=== PATIENT | female | born 1950 | race Caucasian/White ===

== ENCOUNTER 2019-08-15 07:20 | Outpatient (CLI) | payer MEDICARE, OTHER, SELFPAY ==
--- NOTE | ~2019-08-15 | MM_ITS ---
EXAMINATION: MM screening [facility] BI w herminia HISTORY: Screening mammogram TECHNIQUE: Craniocaudal and mediolateral oblique 3-D tomosynthesis images were obtained and synthetic 2-D images were generated. CAD analysis was submitted and interpreted. COMPARISON: Comparison to multiple prior studies sequentially, with oldest reviewed study dated 06/26. BREAST PARENCHYMAL COMPOSITION: There are scattered areas of fibroglandular density. FINDINGS: There is no evidence of suspicious mass, calcification, or architectural distortion to sugg est malignancy in either breast. There has been no suspicious interval change. IMPRESSION: 1. No mammographic evidence of malignancy. 2. Recommend routine screening mammography in one year. BI-RADS Category 1: Negative Reviewed, dictated and finalized at location A.
== END 2019-08-15 07:21 | disposition home or self-care (01) ==
PROVIDERS: PCP Family Medicine; Visit Provider Family Medicine
DX: Z12.31 Encounter for screening mammogram for malignant neoplasm of breast (principal)
CPT/HCPCS: 77063; 77067

== ENCOUNTER 2020-02-26 14:53 | Outpatient (CLI) | payer MEDICARE, OTHER, SELFPAY ==
--- NOTE | ~2020-02-26 | DEXA_ITS ---
Bone Density Report Name: Naty Cruz Age: 69 Sex: Female Ethnicity: White Date of : 1950 Indication: postmenopausal; hysterectomy; Referring Provider: KAE BRADEN Study: Bone densitometry was performed. Exam Date: February 26, 2020 Accession number: [id number] Bone Density: Region BMD T-score Z-score Classification AP Spine (L1-L4) 1.161 1.0 3.1 Normal Femoral Neck (Left) 0.806 -0.4 1.3 Normal Total Hip (Left) 0.981 0.3 1.8 Normal Total Hip Bilateral Avg 0.987 0.4 1.8 Normal Femoral Neck (Right) 0.824 -0.2 1.5 Normal Total Hip (Right) 0.992 0.4 1.8 Normal World Health Organization criteria for BMD impression classify patients as: Normal (T-score at or above -1.0), Osteopenia (T-score between -1.0 and -2.5), or Osteoporosis (T-score at or below -2.5). 10-year Fracture Risk: FRAX not reported because: All T-scores for Spine Total, Hip Total, Femoral Neck at or above -1.0 Previous Exams: Region Exam Age BMD T-score BMD Change BMD Change Date g/cm2 vs Baseline vs Previous AP Spine(L1-L4) 02/26/2020 69 1.161 1.0 -0.010(-0.9%)# 0.016(1.4%)# 07/06/2016 66 1.145 0.9 -0.027(-2.3%)# 0.028(2.5%)# 05/29/2013 63 1.117 0.6 -0.055(-4.7%)# -0.021(-1.8%) 05/25/2011 61 1.137 0.8 -0.034(-2.9%)# -0.067(-5.6%)# 04/06/2007 56 1.204 1.4 0.033(2.8%)* 0.033(2.8%)* 12/26/2003 53 1.172 1.1 Total Hip(Left) 02/26/2020 69 0.981 0.3 -0.133(-11.9%) -0.003(-0.3%)# 07/06/2016 66 0.984 0.3 -0.130(-11.6%) -0.056(-5.4%)# 05/29/2013 63 1.040 0.8 -0.074(-6.6%)# -0.030(-2.8%)* 05/25/2011 61 1.070 1.0 -0.044(-3.9%)# -0.057(-5.0%)# 04/06/2007 56 1.126 1.5 0.013(1.1%) 0.013(1.1%) 12/26/2003 53 1.114 1.4 Total Hip(Right) 02/26/2020 69 0.992 0.4 -0.111(-10.0%) 0.053(5.6%)# 07/06/2016 66 0.940 0.0 -0.163(-14.8%) -0.125(-11.8%) 05/29/2013 63 1.065 1.0 -0.038(-3.5%)# 0.005(0.4%) 05/25/2011 61 1.060 1.0 -0.043(-3.9%)# -0.047(-4.3%)# 04/06/2007 56 1.108 1.4 0.005(0.4%) 0.005(0.4%) 12/26/2003 53 1.103 1.3 *Denotes significance at 95% confidence level, LSC for AP Spine = 0.022 g/cm2, LSC for Total Hip = 0.027 g/cm2 Clinical Information Provided by Patient: Has used the following medications: HRT (i.e. estrogen/hormone therapy), Vitamin D, Calcium Has the following medical conditions: Hysterectomy Patient maximum height was 64 Drinks caffeinated beverages Onset of menses at age 11
== END 2020-02-26 14:54 | disposition home or self-care (01) ==
LOC: ANHIMG 14:55
PROVIDERS: PCP Family Medicine; Visit Provider Family Medicine
DX: Z78.0 Asymptomatic menopausal state (principal)
CPT/HCPCS: 77080

== ENCOUNTER 2020-03-22 09:00 | Outpatient (RCR) | payer MEDICARE, OTHER, SELFPAY ==
[2019-12-25 13:56] VITALS: BP_SYST 80
--- NOTE | 2019-12-25 15:51 | PTOPEVAL ---
INITIAL PHYSICAL THERAPY EVALUATION and PLAN OF CARE Thank you for referring Naty Cruz to [facility].? Naty is scheduled to be seen for physical therapy? 1-2x/week for 16 weeks. Please review, sign, date and return this plan of care BILLY. I agree with and certify that the following plan of care is medically necessary. Referring Physician Date Admitting Provider: Attending Provider: Charly MarieJr. MD Referring Provider: *PT Outpatient Evaluation Start: 12/25/19 13:55 Freq: Status: Active Protocol: Document 12/25/19 13:56 MISTY (Rec: 12/25/19 15:50 MISTY [id number]) Therapy Assessment Status Assessment Status Assessment Status Evaluation Outpatient Past Medical History Past Medical History Source of Past Medical History Patient Neurological History Hx Neurological Disorders No Significant History Cardiovascular History Hx Cardiac Disorders No Significant History Respiratory History Hx Respiratory Disorders No Significant History Gastrointestinal History Hx Gastrointestinal Disorders No Significant History Genitourinary History Hx Genitourinary Disorders No Significant History Musculoskeletal History Hx Orthopedic Surgery Yes: R RTC surgery Endocrine History Hx Endocrine Disorders No Significant History HEENT History Hx Cataracts Yes: 2019 Evaluation Information Problem Diagnosis R RTR, subacromial decompression, distal clavicle excision,biceps tenodesis Onset 12/18/2019 Subjective Information Naty reports that she had Query Text:As Reported By Patient/ 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 Switched MD 's - had MRI - + for rotator cuff tear. Sleeping is uncomfortable - will be awaken during the night. Mornings good - does okay during the day. Wearing sling all of the time except for bathing. Diagnostic Tests MRI For This Problem Yes Prior Level of Function Activity Level (Last 3 Months) Hand Dominance Right Medications Home Meds (Include: OTC, RX, Vitamins, pain meds, hormone replacement Herbals, Dose, Route,and Frequency) cream, magnesium, fish oil, Query Text:Home Med Entries Will No multivitamin Mon, Wed, Fri, Longer Recall From Past Visits. Home vitamin D, E Meds Must Be Re-entered With Each Visit. Home Setting Home Type House,Multiple Levels Environmental Barriers Stairs, Greater than 4 Living Situation With Spouse Jonathan
--- NOTE | 2020-01-15 12:39 | PCPTNOTE ---
Patient called & cancelled scheduled appointment this date due to being put in quarantine for 2 weeks-possible COVID exposure. Patient will be emailed a copy of phase 2 cane exercises and PT called patient with specific instructions for home exercises. Patient to call if having any issues with exercises. Plan to call patient weekly until able to return-to monitor home program. Cheri Young PT
--- NOTE | 2020-01-26 14:44 | PCPTNOTE ---
Patient is due for the renewal of physical therapy orders this date. Plan of care, goals, and progress have been reviewed. The patient remains appropriate for continued physical therapy services 2 times a week for 6 more weeks to advance per MD protocol . Continue physical therapy per plan of care. Please sign and date for approval to continue physical therapy. Thank you for your referral. Cheri Young PT Physician Signature Date Dr. Charly Syed Jr., MD
--- NOTE | 2020-02-07 16:31 | PTOPEVAL ---
PHYSICAL THERAPY REEVALUATION Thank you for referring Naty Cruz to [facility].? The patient is scheduled to be seen for therapy? 1x/week or less depending on progress and exercise needs per protocol, for 6 weeks. Please review, sign, date and return this plan of care BILLY. I agree with and certify that the following plan of care is medically necessary. Referring Physician Date Attending Provider: Charly MarieJr. MD *PT Outpatient Evaluation Start: 12/25/19 13:55 Freq: Status: Active Protocol: Document 02/07/20 16:00 MLV (Rec: 02/07/20 16:28 MLV [id number]) Therapy Re-Assessment Status Pain Assessment Self Report Self Report Pain Level 0 Pain Score Pain Score 0: Self Report Upper Extremity Range of Motion General Upper Extremity Range of Motion Gross Upper Extremity Range of Motion right shoulder active motion Comments improved: flexion 160dg, abduction 163dg, ER 65dg, IR 60dg Upper Extremity Muscle Strength Testing General Upper Extremity Strength Reason Not Measured WNL/Left Gross Upper Extremity Strength Comments patient allowed to begin active motion of left shoulder and isometrics (no resistive yet). Patient has 3/5 throughout right shoulder or greater but not resistance tested per protocol restrictions. PT Clinical Summary Ms. Cruz is a 69 y/o female re -assessed today with a dx of right RCR. The patient is advancing well and on target with all protocol expectations. Goals are being met. The patient will benefit from continued therapy to advance exercises as protocol allows and monitor/stretch right shoulder to achieve full motion.
--- NOTE | 2020-03-22 09:11 | PCPTNOTE ---
Patient called & cancelled scheduled appointment this date. The patient states she saw the doctor and he released her from therapy. Patient to continue on own and will call PT if questions/issues arise.
--- NOTE | 2020-03-22 09:13 | PCPTNOTE ---
PHYSICAL THERAPY DISCHARGE SUMMARY Admitting Provider: Attending Provider: Charly MarieJr. MD Patient:Naty Cruz Date of :1950 Patient has not returned for any further treatments since 03/13/2020, the patient was released due to excellent progress/status of shoulder, therefore she will be discharged at this time. Patient?s initial visit was on 12/25/2019 14:00 and she had a total of 10 visits. The goals have been met. Thank you for referring this patient to [facility]. Please review, sign, date and return this discharge summary BILLY. I have been updated about the patient's current status and I agree with discharge from the above service at this time. Referring Physician Date
== END 2020-03-24 23:59 | disposition home or self-care (01) ==
LOC: ANHPT 09:00
PROVIDERS: PCP Family Medicine; Visit Provider Orthopaedic Surgery
DX: Z48.89 Encounter for other specified surgical aftercare (principal)
CPT/HCPCS: 97110; 97140; 97161

== ENCOUNTER 2020-08-23 07:09 | Outpatient (CLI) | payer MEDICARE, OTHER, SELFPAY ==
--- NOTE | ~2020-08-23 | MM_ITS ---
EXAMINATION: MM screening [facility] BI w herminia HISTORY: Screening mammogram TECHNIQUE: Craniocaudal and mediolateral oblique 3-D tomosynthesis images were obtained and synthetic 2-D images were generated. CAD analysis was submitted and interpreted. COMPARISON: 08/15/2019, 08/11/2018, 07/15/2018 bilateral digital screening mammogram examinations BREAST PARENCHYMAL COMPOSITION: There are scattered areas of fibroglandular density. FINDINGS: There is no evidence of suspicious mass, calcification, or architectural distortion to sugg est malignancy in either breast. There has been no suspicious interval change. IMPRESSION: 1. No mammographic evidence of malignancy. 2. Recommend routine screening mammography in one year. BI-RADS Category 1: Negative Reviewed, dictated and finalized at location A.
== END 2020-08-23 07:10 | disposition home or self-care (01) ==
LOC: ANHIMG 07:13
PROVIDERS: PCP Family Medicine; Visit Provider Family Medicine
DX: Z12.31 Encounter for screening mammogram for malignant neoplasm of breast (principal)
CPT/HCPCS: 77063; 77067

== ENCOUNTER 2021-01-31 09:01 | Outpatient (CLI) | payer MEDICARE, OTHER, SELFPAY ==
--- NOTE | ~2021-01-31 | US_ITS ---
EXAMINATION: US thyroid DATE: 01/31/2021 09:32 INDICATION: Dysphagia. TECHNIQUE: Multiple ultrasound images of the thyroid were obtained. COMPARISON: None. FINDINGS: The right thyroid lobe measures 3.0 x 1.2 x 0.7 cm. The left thyroid lobe measures 3.6 x 0.8 x 1.0 c m. There is a 3 mm nodule in left thyroid lobe. IMPRESSION: 1. Small thyroid nodule, likely not clinically significant. No follow-up is needed. Reviewed, dictated and finalized at location A. MACHINE OPERATOR IMPRESSION: 1. Small thyroid nodule, likely not clinically significant. No follow-up is nee ded.
== END 2021-01-31 09:02 | disposition home or self-care (01) ==
LOC: ANHIMG 09:05
PROVIDERS: PCP Family Medicine; Visit Provider Family Medicine
DX: R13.10 Dysphagia, unspecified (principal); E04.1 Nontoxic single thyroid nodule
CPT/HCPCS: 76536

== ENCOUNTER 2021-02-27 01:59 | Day surgery (SDC) | payer MEDICARE, OTHER, SELFPAY ==
[2021-02-17 11:59] VITALS: BMI 22.3
[2021-02-27 09:03] VITALS: BP 123/74; PULSE 80; RESP 18; TEMP 36.3; O2SAT 99
[2021-02-27] MEDS: LACTATED RINGERS 1,000 ML 150 ML IV CONT (09:14)
--- NOTE | 2021-02-27 09:17 | PM.HPGS ---
History of Present Illness History of Present Illness Consent: Risks, benefits, and alternatives have been discussed and questions answered. Patient agrees to proceed with procedure. Chief complaint: hx of colon polyps Narrative: Naty Cruz is a 70 year old female referred for colon cancer screening. Her last colonoscopy was 5 years ago. She did have a polyp removed at that time Review of Systems Review of Systems: All systems reviewed & are unremarkable except as noted in HPI and below PMFSH Past Medical History Medical History History of chicken pox (~04/16/1953) History of measles (~07/16/1952) History of mumps (~02/28/1959) History of rubella (~06/03/1957) Leukopenia Surgical History Surgical History H/O total hysterectomy History of appendectomy (~2009) History of bunionectomy (~2018) History of cataract surgery (~10/23/19) right eye History of cataract surgery (~2019) left eye History of hemorrhoidectomy (~1999) Family History Family History Mother Cerebrovascular accident Grandparent Polio Other Hypertension Social History Social History Smoking status: Never smoker Alcohol intake: current Alcohol use details: on occasion Substance use: never Substance use type: does not use Living arrangements: with friend(s) Spiritual care concerns: No Meds Home Medications and Allergies Home Medications Medication Instructions Recorded Confirmed Type cholecalciferol (vitamin D3) 50 50 mcg PO DAILY 11/06/19 02/17/21 History mcg (2,000 unit) capsule magnesium 200 mg tablet 400 mg PO DAILY tablet 11/06/19 02/17/21 History multivitamin 1 tablet PO .MWF tablet 11/06/19 02/17/21 History ascorbic acid (vitamin C) 1,000 mg 1 g PO DAILY 01/10/21 02/17/21 History tablet coenzyme Q10 100 mg capsule 200 mg PO DAILY cap 01/10/21 02/17/21 History docusate sodium 100 mg capsule 100 mg PO DAILY 01/10/21 02/17/21 History estradiol 1 mg tablet 1.5 mg PO DAILY tablet 01/10/21 02/17/21 History omega-3 fatty acids 1,000 mg 2,000 mg PO DAILY cap 01/10/21 02/17/21 History capsule prasterone (dhea) 50 mg capsule 50 mg PO DAILY 01/10/21 02/17/21 History progesterone micronized 100 mg 300 mg PO QAM cap 01/10/21 02/17/21 History capsule testosterone 50 mg/mL 35 mg IM DAILY 01/10/21 02/17/21 History intramuscular solution thyroid (pork) 120 mg tablet 120 mg PO DAILY 01/10/21 02/17/21 History vitamin A palmitate 10,000 unit 10,000 unit PO DAILY 01/10/21 02/17/21 History tablet Allergies Allergy/AdvReac Type Severity Reaction Status Date / Time meloxicam Allergy Unknown Rash Verified 02/27/21 09:02 Vital Signs Vital Signs - 24 hr 02/27/21 09:03 Temperature 36.3 C L Pulse Rate 80 Respiratory Rate 18 Blood Pressure 123/74 Pulse Oximetry 99 Exam Resp: Auscultation: clear to auscultation bilaterally Cardio: Rate: regular rate Rhythm: regular rhythm GI: GI Palp: Yes Soft to palpation and No Tenderness to palpation present (GI) Assessment and Plan Assessment and plan (1) Colon cancer screening: Code(s): Z12.11 - Encounter for screening for malignant neoplasm of colon Status: Acute Assessment and Plan: Colonoscopy with possible biopsy or polypectomy or cautery or injection of substances.
--- NOTE | 2021-02-27 09:40 | WPDANESEPPF ---
Anes - Initial Pre Proc Eval Procedure: Operation Date: 02/27/21 10:00 Proposed Procedures p Screening Colonoscopy - Duran Rodrigez MD Date/Time: 02/27/21 09:41 Surgeon: Duran Rodrigez MD Pre Op Diagnosis: hx of colon polyps Patient Data Age: 70 Gender: F Height: 1.63 m Weight: 61 kg Last Vital Signs Temp 36.3 C L 02/27/21 09:03 Pulse 80 02/27/21 09:03 Resp 18 02/27/21 09:03 BP 123/74 02/27/21 09:03 Pulse Ox 99 02/27/21 09:03 Allergies Allergy/AdvReac Type Severity Reaction Status Date / Time meloxicam Allergy Unknown Rash Verified 02/27/21 09:02 Home Medications Medication Instructions Recorded Confirmed Type cholecalciferol (vitamin D3) 50 50 mcg PO DAILY 11/06/19 02/17/21 History mcg (2,000 unit) capsule magnesium 200 mg tablet 400 mg PO DAILY tablet 11/06/19 02/17/21 History multivitamin 1 tablet PO .MWF tablet 11/06/19 02/17/21 History ascorbic acid (vitamin C) 1,000 mg 1 g PO DAILY 01/10/21 02/17/21 History tablet coenzyme Q10 100 mg capsule 200 mg PO DAILY cap 01/10/21 02/17/21 History docusate sodium 100 mg capsule 100 mg PO DAILY 01/10/21 02/17/21 History estradiol 1 mg tablet 1.5 mg PO DAILY tablet 01/10/21 02/17/21 History omega-3 fatty acids 1,000 mg 2,000 mg PO DAILY cap 01/10/21 02/17/21 History capsule prasterone (dhea) 50 mg capsule 50 mg PO DAILY 01/10/21 02/17/21 History progesterone micronized 100 mg 300 mg PO QAM cap 01/10/21 02/17/21 History capsule testosterone 50 mg/mL 35 mg IM DAILY 01/10/21 02/17/21 History intramuscular solution thyroid (pork) 120 mg tablet 120 mg PO DAILY 01/10/21 02/17/21 History vitamin A palmitate 10,000 unit 10,000 unit PO DAILY 01/10/21 02/17/21 History tablet Patient hx anesthesia problems: none Family hx anesthesia problems: none Results Review: All pre-operative results and documents have been reviewed as part of the pre-operative evaluation. [facility] Past Medical History Medical History History of chicken pox (~04/16/1953) History of measles (~07/16/1952) History of mumps (~02/28/1959) History of rubella (~06/03/1957) Leukopenia Surgical History Surgical History H/O total hysterectomy History of appendectomy (~2009) History of bunionectomy (~2018) History of cataract surgery (~10/23/19) right eye History of cataract surgery (~2019) left eye History of hemorrhoidectomy (~1999) Family History Family History Mother Cerebrovascular accident Grandparent Polio Other Hypertension Social History Social History Smoking status: Never smoker Alcohol intake: current Alcohol use details: on occasion Substance use: never Substance use type: does not use Living arrangements: with friend(s) Spiritual care concerns: No Anes - Eval Final PreProcedure Day of Procedure 02/27/21 09:41 Patient weight: normal Heart: regular rate and rhythm Lungs: clear to auscultation and normal air movement Airway: Mallampati scale class II Neurological: alert and oriented Last oral intake: >/= 8 hours ASA classification: I Emergent: no Anesthetic plan: proceed Anesthesia type and monitoring: general GIVS and standard monitoring Results Review: All pre-operative results and documents have been reviewed as part of the pre-operative evaluation. Informed Consent: The patient's anesthetic plan and its attendant risks and benefits were discussed with the patient/family/POA. Questions were solicited and answers provided to the satisfaction of the patient/family/POA.
[2021-02-27 10:12] VITALS: BP 98/60; PULSE 76; RESP 18; O2SAT 100
[2021-02-27 10:22] VITALS: BP 109/66; PULSE 74; RESP 18; O2SAT 100
[2021-02-27 10:30] VITALS: BP 106/50; PULSE 74; RESP 18; O2SAT 100
== END 2021-02-27 10:41 | disposition home or self-care (01) ==
PROVIDERS: PCP Family Medicine; Visit Provider Internal Medicine Gastroenterology
PROC: 0DJD8ZZ Inspection of Lower Intestinal Tract, Via Natural or Artificial Opening Endoscopic (ICD-10-PCS; CPT 45378; principal; 2021-02-27 10:00)
DX: Z12.11 Encounter for screening for malignant neoplasm of colon (principal); Z86.010 Personal history of colon polyps
CPT/HCPCS: G0105; J2001; J2704; J7120

== ENCOUNTER 2021-09-11 07:03 | Outpatient (CLI) | payer MEDICARE, OTHER, SELFPAY ==
--- NOTE | ~2021-09-11 | MM_ITS ---
EXAMINATION: MM screening [facility] BI w herminia HISTORY: Screening TECHNIQUE: Craniocaudal and mediolateral oblique 3-D tomosynthesis images were obtained and synthetic 2-D images were generated. CAD analysis was submitted and interpreted. COMPARISON: Comparison to multiple prior studies sequentially, with oldest reviewed study dated 07/01. BREAST PARENCHYMAL COMPOSITION: Breast composed of scattered areas of fibroglandular density FINDINGS: There is no evidence of suspicious mass, calcification, or architectural distortion to sugg est malignancy in either breast. There has been no suspicious interval change. IMPRESSION: 1. No mammographic evidence of malignancy. 2. Recommend routine screening mammography in one year. BI-RADS Category 1: Negative Reviewed, dictated and finalized at location A.
== END 2021-09-11 07:04 | disposition home or self-care (01) ==
PROVIDERS: PCP Family Medicine; Visit Provider Family Medicine
DX: Z12.31 Encounter for screening mammogram for malignant neoplasm of breast (principal)
CPT/HCPCS: 77063; 77067

== ENCOUNTER 2022-09-14 09:26 | Outpatient (CLI) | payer MEDICARE, OTHER, SELFPAY ==
--- NOTE | ~2022-09-14 | MM_ITS ---
EXAMINATION: MM screening [facility] BI w herminia HISTORY: Screening mammogram TECHNIQUE: Craniocaudal and mediolateral oblique 3-D tomosynthesis images were obtained and synthetic 2-D images were generated. CAD analysis was submitted and interpreted. COMPARISON: 09/11/2021, 08/23/2020, 08/15/2019 BREAST PARENCHYMAL COMPOSITION: There are scattered areas of fibroglandular density. FINDINGS: No suspicious mass, calcification, or architectural distortion are identified in either beryl ast to suggest malignancy. There has been no suspicious interval change. IMPRESSION: 1. No mammographic evidence of malignancy. 2. Recommend routine screening mammography in one year. BI-RADS Category 1: Negative Reviewed, dictated and finalized at location A.
--- NOTE | ~2022-09-14 | DEXA_ITS ---
Bone Density Report Name: SOWMYA LINDSEY Age: 72 Sex: Female Ethnicity: White Date of : 1950 Indication: postmenopausal; screening for osteoporosis; parental hip fracture; Referring Provider: KAE BRADEN Study: Bone densitometry was performed. Exam Date: September 14, 2022 Accession number: [id number] Bone Density: Region BMD T-score Z-score Classification AP Spine(L1-L4) 1.234 1.7 3.9 Normal Femoral Neck (Left) 0.936 0.8 2.7 Normal Total Hip (Left) 1.013 0.6 2.2 Normal Femoral Neck (Right) 0.996 1.3 3.2 Normal Total Hip (Right) 0.999 0.5 2.0 Normal Total Hip Mean 1.006 0.6 2.1 Normal World Health Organization criteria for BMD impression classify patients as: Normal (T-score at or above -1.0), Osteopenia (T-score between -1.0 and -2.5), or Osteoporosis (T-score at or below -2.5). 10-year Fracture Risk: FRAX not reported because: All T-scores for Spine Total, Hip Total, Femoral Neck at or above -1.0 Previous Exams: Region Exam Age BMD T-score BMD Change BMD Change Date g/cm2 vs Baseline vs Previous AP Spine (L1-L4) 09/14/2022 72 1.234 1.7 0.117 (10.5%)# 0.072 (6.2%)# 02/26/2020 69 1.161 1.0 0.045 (4.0%)* 0.016 (1.4%)# 07/06/2016 66 1.145 0.9 0.028 (2.5%)# 0.028 (2.5%)# 05/29/2013 63 1.117 0.6 Total Hip(Left) 09/14/2022 72 1.013 0.6 -0.027 (-2.6%) 0.032 (3.2%)# 02/26/2020 69 0.981 0.3 -0.059 (-5.7%) -0.003 (-0.3%) 07/06/2016 66 0.984 0.3 -0.056 (-5.4%) -0.056 (-5.4%) 05/29/2013 63 1.040 0.8 Total Hip(Right) 09/14/2022 72 0.999 0.5 -0.066 (-6.2%) 0.006 (0.6%)# 02/26/2020 69 0.992 0.4 -0.073 (-6.8%) 0.053 (5.6%)# 07/06/2016 66 0.940 0.0 -0.125 (-11.8% -0.125 (-11.8% 05/29/2013 63 1.065 1.0 *Denotes significance at 95% confidence level, LSC for AP Spine = 0.022 g/cm2, LSC for Total Hip = 0.027 g/cm2 # Denotes dissimilar scan types or analysis methods Clinical Information Provided by Patient: Parent has had a hip fracture Has used the following medications: HRT (i.e. estrogen/hormone therapy), Vitamin D Patient maximum height was 64 Menopause Age: 49 Drinks caffeinated beverages Onset of menses at age 11 Number of children 2 Impression: The patient has normal bone mass. The patient has risk factors, including: parental hip fracture. No significant bone loss was observed. Discussion: BONE DENSITY IS ABOVE THE MINIMUM
== END 2022-09-14 09:27 | disposition home or self-care (01) ==
LOC: ANHIMG 09:27
PROVIDERS: PCP Family Medicine; Visit Provider Family Medicine
DX: Z12.31 Encounter for screening mammogram for malignant neoplasm of breast (principal); Z78.0 Asymptomatic menopausal state; Z13.820 Encounter for screening for osteoporosis
CPT/HCPCS: 77063; 77067; 77080

== ENCOUNTER 2022-10-06 09:27 | Outpatient (CLI) | payer MEDICARE, OTHER, SELFPAY | END 2022-10-06 09:28 | disposition home or self-care (01) | PROVIDERS: PCP Family Medicine; Visit Provider Surgery | DX: K43.2 Incisional hernia without obstruction or gangrene (principal); Z01.818 Encounter for other preprocedural examination | CPT/HCPCS: 36415; 86850; 86900; 86901 ==

== ENCOUNTER 2022-10-13 01:14 | Day surgery (SDC) | payer MEDICARE, OTHER, SELFPAY ==
[2022-10-05 15:44] VITALS: BMI 22.6
--- NOTE | 2022-10-05 16:04 | PC.NURSE ---
Addendum entered by Pratibha Castillo RN 10/05/22 16:10: HIBICLENS SHOWER ON MORNING OF SURGERY, PT RELAYS UNDERSTANDING. Original Note: Report to the Outpatient Waiting Room, entrance under the green pavilion located off [facility], at time __8:00AM on date __10/13/22 . Planned Procedure Time: __10:00AM . Time changes happen often and if your time is changed the preop area will call you the afternoon before. - You and your visitor will be asked to self-screen and do not enter if you have any COVID symptoms. - A mask is optional within the hospital at this time. Patients may have clear liquids (water, carbonated beverages, clear teas, apple juice) until 3 hours prior to surgery with a maximum of 20 ounces. - No food from midnight until time of surgery Take the following medications with a SIP of water the morning of surgery: ___THYROID MEDICATION DO NOT STOP ANY OF YOUR OTHER PRESCRIPTION MEDICATIONS PRIOR TO SURGERY ?EXCEPT THE FOLLOWING Medications to discontinue per physician ___HOLD ALL VITAMINS/SUPPLEMENTS 3 DAYS PRE-OP PER ANESTHESIA- LAST DOSE 10/09/22. 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 No jewelry (including any body piercings) or valuables the day of surgery, leave them at home. Please take a shower or bath the night before, or the morning of, surgery with an antibacterial soap. Wear comfortable, loose fitting clothing. Children are encouraged to wear pajamas. - Jewelry must be removed prior to entering the operating room. Rings and piercings that are not removed may be cut off. - The hospital will not accept responsibility for valuables. - Please leave all valuables, including medications, at home the day of surgery. If you are going home after surgery, a licensed race car driver must drive you home. - NO public transportation without another adult if you receive anesthesia. - We recommend that an adult stay with you for 24 hours following discharge. - We also recommend that you do not drive, make important decision, drink alcoholic beverages, or take any drugs that were not prescribed by your health care provider for at least 24 hours after your discharge time. Follow any additional instructions given to you from your surgeon. If you or anyone in your household have experienced Covid symptoms in the past week, please notify your surgeon or the nurse liaison at the phone number below for possible testing. Telephone instructions given to __PATIENT and asked if any additional questions and then verbalized understanding. Patient advised to call surgeon office or pre surgery nurse liaison [phone] if any additional questions.
[2022-10-13] VITALS (10 sets, daily range): BP systolic 117–148; BP diastolic 65–103; PULSE 61–80; RESP 10–16; TEMP 36.2–36.3; O2SAT 96–100
[2022-10-13] MEDS: LACTATED RINGERS 1,000 ML 30 ML IV CONT ×2 (08:40→12:40)
[2022-10-13] MEDS: ACETAMINOPHEN 500 MG TABLET 1000 MG PO (08:43)
[2022-10-13] MEDS: KETOROLAC 15 MG/ML VIAL (*BKC) IV PUSH (08:43)
--- NOTE | 2022-10-13 09:09 | WPDANESEPPF ---
Anes - Initial Pre Proc Eval Procedure: Operation Date: 10/13/22 10:00 Proposed Procedures p Laparoscopic Incisional Hernia Repair with Mesh, Davinci Assisted - Sarath Fairchild DO Date/Time: 10/13/22 09:09 Surgeon: Sarath Fairchild DO Pre Op Diagnosis: Inc Hernia Patient Data Age: 72 Gender: F Height: 1.61 m Weight: 58.8 kg Last Vital Signs Temp 36.3 C L 10/13/22 08:09 Pulse 80 10/13/22 08:09 Resp 16 10/13/22 08:09 BP 126/103 H 10/13/22 08:09 Pulse Ox 100 10/13/22 08:09 O2 Del Method Room Air 10/13/22 08:09 Allergies Allergy/AdvReac Type Severity Reaction Status Date / Time meloxicam Allergy Unknown Rash Verified 10/13/22 08:15 Home Medications Medication Instructions Recorded Confirmed Type magnesium 200 mg tablet 400 mg PO DAILY 11/06/19 10/13/22 History ascorbic acid (vitamin C) 1,000 mg 1 g PO DAILY 01/10/21 10/13/22 History tablet coenzyme Q10 100 mg capsule 100 mg PO BID 01/10/21 10/13/22 History docusate sodium 100 mg capsule 100 mg PO DAILY 01/10/21 10/13/22 History estradiol 1 mg tablet 1.5 mg PO DAILY 01/10/21 10/13/22 History omega-3 fatty acids 1,000 mg 1,000 mg PO DAILY 01/10/21 10/13/22 History capsule progesterone micronized 100 mg 300 mg PO HS 01/10/21 10/13/22 History capsule thyroid (pork) 120 mg tablet 120 mg PO QAM 01/10/21 10/13/22 History vitamin A palmitate 3,000 mcg 10,000 unit PO DAILY 01/10/21 10/13/22 History (10,000 unit) tablet cholecalciferol (vitamin D3) 125 125 mcg PO DAILY 10/05/22 10/13/22 History mcg (5,000 unit) capsule prasterone (dhea)-calcium 1 tablet PO DAILY 10/05/22 10/13/22 History carbonate 10 mg-47 mg calcium tablet (DHEA) testosterone 30 mg/actuation (1.5 35 mg topical DAILY 10/05/22 10/13/22 History mL) transderm solution metered pump vit A 7,160 unit-vit C 113 mg-vit 1 tablet PO DAILY 10/05/22 10/13/22 History E 100 [id number] tablet oxycodone 5 mg tablet 5 mg PO Q4H PRN pain #10 tabs 10/12/22 Rx Patient hx anesthesia problems: none Family hx anesthesia problems: none Results Review: All pre-operative results and documents have been reviewed as part of the pre-operative evaluation. [facility] Past Medical History Medical History (Updated 09/25/22 @ 10:29 by Ayaka Mancini) History of chicken pox (~04/16/1953) History of measles (~07/16/1952) History of mumps (~02/28/1959) History of rubella (~06/03/1957) Leukopenia Surgical History Surgical History (Updated 09/30/22 @ 08:54 by Ayaka Mancini) H/O total hysterectomy 07/30/1999 History of appendectomy (~2009) 2011: open appendectomy History of bunionectomy (~2018) History of cataract surgery (~10/23/19) right eye History of cataract surgery (~2019) left eye History of rotator cuff surgery 12/18/2019 - full repair at the anterior supraspinatus performed at [facility] in [place], [place]. Hx of hemorrhoidectomy ~ 1980 Family History Family History Mother Cerebrovascular accident Grandparent Polio Other Hypertension Social History Social History Smoking status: Never smoker Alcohol intake: current Drinks per week: 5 Alcohol use details: on occasion Substance use: never Substance use type: does not use Living arrangements: alone Spiritual care concerns: No Anes - Eval Final PreProcedure Day of Procedure 10/13/22 09:09 Patient weight: normal Heart: regular rate and rhythm Lungs: clear to auscultation Airway: Mallampati scale class II Neurological: alert and oriented Last oral intake: >/= 8 hours ASA classification: II Emergent: no Anesthetic plan: proceed Anesthesia type and monitoring: general ETT and standard monitoring Results Review: All pre-operative results and documents have been reviewed as part of the pre-operative evaluati
--- NOTE | 2022-10-13 10:05 | WPDHPUPDATE1 ---
History and Physical Update Update Date/Time: 10/13/22 10:05 History and Physical has been reviewed, including an updated exam of the patient. There are NO changes in the patient's condition. Risks, benefits, and alternatives have been discussed and questions answered. Patient agrees to proceed with procedure.
[2022-10-13] MEDS: ceFAZolin 2 GM/D5W 50 ML 2 GM/50 ML BAG IVPB (10:44)
[2022-10-13] MEDS: BUPIVACAINE/EPINEPHRINE 0.25% 50 ML VIAL 30 ML INFILTRATE (11:18)
--- NOTE | 2022-10-13 12:22 | W.PM.PROC2 ---
Procedure Note - Detailed Date of Procedure 10/13/22 Pre-op Diagnosis Incisional hernia Post-op Diagnosis Same (3 cm incisional hernia) Procedure Performed Laparoscopic 3 cm incisional hernia repair with mesh, da Lakshmi assisted Surgeon Sarath Fairchild DO Anesthesia General and Local (Exparel) Indications This is a 72-year-old woman who presented with a right lower quadrant bulge that she noticed about 1 year ago. She has a history of an open appendectomy in 2010. She began noticing a bulge and some slight discomfort over the old scar. She denied any change in bowel habits. She was found to have a reducible hernia at the old appendectomy site. Discussions were made with the patient treatment options and decision was made to proceed with robotic assisted laparoscopic incisional hernia repair with mesh. Findings Laparoscopic incisional hernia repair was performed. The patient was found to have a 3 cm reducible incisional hernia at the right lower quadrant appendectomy site. There were a few omental adhesions to the hernia sac but no other significant abnormalities were noted. A robotic transabdominal preperitoneal approach was utilized for repair. The fascial edges of hernia defect were closed using 0 Stratafix running absorbable suture. I then used a Bard soft mesh cut to 4 in x 4 in. This was placed within the preperitoneal pocket secured to abdominal wall using 3-0 Vicryl simple interrupted sutures. Description of Procedure Procedure as well as risks, benefits, and alternatives were discussed with the patient. Written consent was obtained and placed in chart prior to procedure. Patient was brought back to surgical suite. She was placed supine on operating table. Time-out was done to confirm patient and procedure. She was then intubated by the anesthesia department. A bump was placed under her left hip, and the bed was flexed slightly to extend the space between her costal margin and iliac crest. For abdomen was prepped and draped in sterile fashion using chlorhexidine prep. A 5 millimeter incision was made in the left upper quadrant, and a 5 millimeter Optiview trocar was advanced through the abdominal layers under direct visualization. Once inside the abdominal cavity, carbon dioxide insufflation was used to create a pneumoperitoneum. abdomen was inspected. An 8 millimeter incision was made in the left lower quadrant, and an 8 millimeter robotic trocar was placed under direct visualization. Another 8 millimeter incision was made in the left lateral abdomen, and an 8 millimeter robotic trocar was placed under direct visualization. 0.5% bupivacaine with epinephrine was infiltrated locally around each of the port sites. The 5 millimeter port was removed, and this was replaced with another 8 mm port. The robotic arms were brought up to the patient's bedside and secured to the ports. The camera and instruments were inserted, and I then moved over to the robotic console and took control of the camera and instruments. After careful thorough inspection of the abdominal cavity, I began my dissection at the hernia. The omental adhesions were taken down using scissors with electrocautery. I then began a preperitoneal plane along the lower midline abdomen and extended this laterally to right lower quadrant over the hernia defect was. Hernia sac was reduced and the preperitoneal plane was dissected further laterally to allow for mesh placement. I also extended my dissection into the space of rete us and transected the right round ligament using electrocautery to allow for further dissection within this plane. I then measured the hernia size. The hernia measured 3 cm. The fascia was closed using an 0-Stratafix running suture in a transverse fashion. A 4 in x 4 in Bard soft mesh was then placed within the preperitoneal space. This was oriented vertically with the mesh centered on the hernia defect. The mesh was then secured to abdominal wall using 3-0
[2022-10-13] MEDS: oxyCODONE HCL (*CRX) 5 MG TAB IR PO (13:50)
== END 2022-10-13 14:47 | disposition home or self-care (01) ==
PROVIDERS: PCP Family Medicine; Visit Provider Surgery
PROC: (CPT 49593; principal; 2022-10-13 10:00)
DX: K43.2 Incisional hernia without obstruction or gangrene (principal)
CPT/HCPCS: 49593; S2900; A9270; C1781; J0690; J1100; J1170; J1885; J2250; J2405; J2704; J3010; J7120

== ENCOUNTER 2023-02-27 07:45 | Outpatient (CLI) | payer MEDICARE, OTHER, SELFPAY ==
--- NOTE | ~2023-02-27 | XR_ITS ---
XR hip BI 2V w AP pelvis 02/27/2023 08:20 Indication: Hip pain. No known injury. Procedure: AP pelvis and 2 views each hip Comparison: No prior studies for comparison. Findings: There is moderate osteoarthritis of the hips with subchondral cyst formation bilaterally in volving the acetabulum. Pelvic rings are intact. No fracture or traumatic malalignment. Impression: 1: Moderate bilateral osteoarthritis of the hips. Reviewed, dictated and finalized at location A. SE RENDERER Impression: 1: Moderate bilateral osteoarthritis of the hips.
--- NOTE | ~2023-02-27 | XR_ITS ---
XR lumbar spine min 4V 02/27/2023 08:20 Indication: Low back pain Procedure: 5 views lumbar spine Comparison: 08/03/2017 Findings: There is dextroscoliosis. Vertebral body heights are maintained. There is disc narrowing at L2-3 through L4-5. There is moderate multilevel facet hypertrophy of the mid and lower lumbar spine. No acute fracture or traumatic malalignment. Sacral foramen are symmetric. Impression: 1: Interval progression of moderate lumbar spondylosis with dextroscoliosis. Reviewed, dictated and finalized at location A. GER VISUAL Impression: 1: Interval progression of moderate lumbar spondylosis with dextroscoliosis.
== END 2023-02-27 07:46 | disposition home or self-care (01) ==
PROVIDERS: PCP Family Medicine; Visit Provider Family Medicine
DX: M16.0 Bilateral primary osteoarthritis of hip (principal); M43.06 Spondylolysis, lumbar region; M41.86 Other forms of scoliosis, lumbar region
CPT/HCPCS: 72110; 73521

== ENCOUNTER 2023-11-04 10:02 | Outpatient (CLI) | payer MEDICARE, SELFPAY ==
--- NOTE | ~2023-11-04 | MM_ITS ---
EXAMINATION: MM screening tangela BI w herminia HISTORY: Screening TECHNIQUE: Craniocaudal and mediolateral oblique 3-D tomosynthesis images were obtained and synthetic 2-D images were generated. CAD analysis was submitted and interpreted. COMPARISON: Comparison to multiple prior studies sequentially, with oldest reviewed study dated 05/2027. BREAST PARENCHYMAL COMPOSITION: Dense: The breasts are heterogeneously dense, which may obscure small masses FINDINGS: There is no evidence of suspicious mass, calcification, or architectural distortion to sugg est malignancy in either breast. There has been no suspicious interval change. IMPRESSION: 1. No mammographic evidence of malignancy. 2. Recommend routine screening mammography in one year. BI-RADS Category 1: Negative Reviewed, dictated and finalized at location B.
== END 2023-11-04 10:03 | disposition home or self-care (01) ==
LOC: ANHIMG 10:03
PROVIDERS: PCP Family Medicine; Visit Provider Family Medicine
DX: Z12.31 Encounter for screening mammogram for malignant neoplasm of breast (principal)
CPT/HCPCS: 77063; 77067

== ENCOUNTER 2023-12-06 09:52 | Outpatient (CLI) | payer MEDICARE, SELFPAY ==
--- NOTE | ~2023-12-06 | XR_ITS ---
Right Shoulder Technique: AP and scapular Y views were obtained. Clinical History: Lump Findings: No fracture or dislocation is seen. Osseous alignment is anatomic. The glenohumeral joint i s intact. There is mild AC joint degenerative change. Soft tissues are unremarkable. Impression: Mild AC joint degenerative change. Reviewed, dictated and finalized at location . Impression: Mild AC joint degenerative change.
== END 2023-12-06 09:53 | disposition home or self-care (01) ==
PROVIDERS: PCP Family Medicine; Visit Provider Orthopaedic Surgery
DX: M85.611 Other cyst of bone, right shoulder (principal); M19.011 Primary osteoarthritis, right shoulder
CPT/HCPCS: 73030

== ENCOUNTER 2023-12-27 08:14 | Outpatient (CLI) | payer MEDICARE, SELFPAY ==
--- NOTE | ~2023-12-27 | MR_ITS ---
EXAMINATION: MR knee RT wo con DATE: 12/27/2023 08:59 INDICATION: Right knee pain post injury TECHNIQUE: Magnetic resonance imaging (MRI) of the right knee was performed without intravenous contr ast. Sequences included coronal PD-weighted FSE, coronal PD-weighted FS FSE, sagittal T2-weighted FS E, sagittal PD-weighted FS FSE and axial PD weighted fat saturated FSE. COMPARISON: None. FINDINGS: Medial compartment: Medial meniscus is normal. There is deep chondral ulceration and fissuring along the weightbearing me dial femoral condyle with prominent subarticular cystlike change along the medial margin of the poste rior weightbearing medial femoral condyle and with small central subchondral osteophyte at the juncti on of the anterior to central weightbearing medial femoral condyle. Shallow chondral ulceration with minimal cartilage thickness loss but with chondral surface regularity at the central to medial aspect of the medial tibial plateau. Lateral compartment: Lateral meniscus is normal. Partial-thickness chondral ulceration which appears to involve at least 5 0% the cartilage thickness at the anterior weightbearing lateral femoral condyle and at the central a spect of the lateral tibial plateau. Patellofemoral compartment: Extensive full and near full-thickness cartilage loss with cortical irregularity and subarticular wilton ma-like and cystlike changes along large portions of the lateral patellar facet and lateral trochlea. Additional less severe partial thickness chondral ulceration and deep fissuring with small central s ubchondral osteophytes along the medial patellar facet and medial trochlea. Ligaments and tendons: The posterior cruciate ligament is normal. Partial tear of the anterior cruciate ligament involving t he anteromedial bundle. The medial collateral ligament and fibular collateral ligament complex are no rmal. Mild tendinopathy without tear of the distal quadriceps and patellar tendons. The visualized me dial and lateral hamstring tendons as well as the iliotibial band are normal. Fluid: Small right knee joint effusion. There is a suprapatellar plical band. No loose osteochondral bodies identified. Osseous/other: 1 alignment is normal. Focal likely reactive marrow edema underlying the tibial footplate of the ante rior cruciate ligament. No fracture or pathologic marrow replacing process. IMPRESSION: 1. Partial anterior cruciate ligament tear involving the anteromedial bundle. 2. 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 Reviewed, dictated and finalized at location A. IMPRESSION: 1. Partial anterior cruciate ligament tear involving the anteromedial bundle. 2. 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
== END 2023-12-27 08:15 | disposition home or self-care (01) ==
LOC: GOSHIMG 08:16
PROVIDERS: PCP Orthopaedic Surgery; Visit Provider Student in an Organized Health Care Education/Training Program
DX: M17.11 Unilateral primary osteoarthritis, right knee (principal); S83.511A Sprain of anterior cruciate ligament of right knee, initial encounter; X58.XXXA Exposure to other specified factors, initial encounter
CPT/HCPCS: 73721

== ENCOUNTER 2024-03-17 08:30 | Outpatient (RCR) | payer MEDICARE, SELFPAY ==
--- NOTE | 2024-01-07 12:19 | OPREHPOC ---
Outpatient Therapy Plan of Care This is a Multidisciplinary Plan of Care that may contain components documented by all disciplines (PT, OT, and ST.) PT Problem 1 PT Problem #1 Knowledge Deficit PT Goal 1 Goal / Goal Update [place] with HEP Target Visit 4 PT Problem 2 PT Problem #2 Impaired Range of Motion PT Goal 1 Goal / Goal Update Patient will achieve terminal R knee extension for improved gait cycle and stride Target Visit 8 PT Problem 3 PT Problem #3 Impaired Strength PT Goal 1 Goal / Goal Update Improve R hamstring strength to 5/5 to force couple with ACL for knee stability Target Visit 8 PT Goal 2 Goal / Goal Update Improve tiffanie hip abduction strength to 4+5 to improve lateral stability of pelvis and hip during ADL performance Target Visit 8 PT Goal 1 Goal / Goal Update Patient will demonstrate ability to perform squat lift of 25# with proper form and no knee pain Target Visit 8 PT Goal 2 Goal / Goal Update Demonstrate ability to maintain dynamic single leg stance with no pain for 30 seconds Target Visit 8
--- NOTE | 2024-01-07 12:19 | PTOPEVAL1 ---
Assessment and note entered by Jeremi Healy, PT Evaluation Information Assessment Status Evaluation Diagnosis Strain of Right ACL ICD-10 Condition Codes (PT) M25.561 Onset 12/22/23 Subjective Information Reports that she had a twisting injury of the knee while playing pickle ball. Pain is much better, but still feeling painful and unstable. Feels that functionally she is able to do most things but is apprehensive. Still has pain and lacking knee extension. Very active in gym and playing pickle ball and would like to return to that as soon as possible. Reported Pain Level Pain Score 0: Self Report Assessment PT Clinical Summary Patient presents with lack of [id number] knee extension, hamstring weakness and poor lateral hip stability. Shows signs and symptoms consistent with knee trauma and instability. Will benefit from skilled therapy to address these deficits for mcfp knee and hip stability to return to pain free full functional activity. Plan of Care Interventions Gait Training,Manual Therapy,Neuro Re-education, Therapeutic Activities,Therapeutic Exercise PT Services Indicated Yes Treatment Frequency and 1-2x/week for 8 visits Duration These treatments will address the objective and functional deficits as defined above. The patient will be advanced safely and appropriately in order for the patient to progress towards his/her prior level of function. Additional exercises will be introduced and as well as a comprehensive home exercise program upon discharge, if needed, ?to ensure carryover of functional gains achieved in the clinic. This treatment plan has been reviewed and agreement upon by the patient.
--- NOTE | 2024-02-08 09:52 | OPREHPOC ---
Outpatient Therapy Plan of Care This is a Multidisciplinary Plan of Care that may contain components documented by all disciplines (PT, OT, and ST.) PT Problem 1 PT Problem #1 Knowledge Deficit PT Goal 1 Goal / Goal Update [place] with HEP Target Visit 4 Progress Met PT Problem 2 PT Problem #2 Impaired Range of Motion PT Goal 1 Goal / Goal Update Patient will achieve terminal R knee extension for improved gait cycle and stride -Improved but still lacking Target Visit 16 Progress Partially Met PT Problem 3 PT Problem #3 Impaired Strength PT Goal 1 Goal / Goal Update Improve R hamstring strength to 5/5 to force couple with ACL for knee stability Target Visit 16 Progress Partially Met PT Goal 2 Goal / Goal Update Improve tiffanie hip abduction strength to 4+/5 to improve lateral stability of pelvis and hip during ADL performance Target Visit 16 Progress Partially Met PT Goal 1 Goal / Goal Update Patient will demonstrate ability to perform squat lift of 25# with proper form and no knee pain Target Visit 16 Progress Partially Met PT Goal 2 Goal / Goal Update Demonstrate ability to maintain dynamic single leg stance with no pain for 30 seconds Target Visit 16 Progress Partially Met
--- NOTE | 2024-02-08 09:52 | PTOPPROG ---
Assessment and note entered by Jeremi Healy, PT Evaluation Information Assessment Status Progress Diagnosis Strain of Right ACL ICD-10 Condition Codes (PT) M25.561 Onset 12/22/23 Subjective Information Reports that she is overall doing a little better today. She is still having pain on inferior lateral knee that increases with activity. Has been avoiding open chain exercise. Assessment PT Clinical Summary Patient has seen progress in knee ROM and strength of tiffanie hips. Still having discomfort with hamstring engagement and lacking terminal knee ROM . Will continue to benefit from skilled therapy to address these deficits. Plan of Care Interventions Gait Training,Manual Therapy,Neuro Re-education, Therapeutic Activities,Therapeutic Exercise PT Services Indicated Yes Treatment Frequency and 1x/week for 8 visits Duration These treatments will address the objective and functional deficits as defined above. The patient will be advanced safely and appropriately in order for the patient to progress towards his/her prior level of function. Additional exercises will be introduced and as well as a comprehensive home exercise program upon discharge, if needed, ?to ensure carryover of functional gains achieved in the clinic. This treatment plan has been reviewed and agreement upon by the patient.
--- NOTE | 2024-03-17 09:28 | OPREHPOC ---
Outpatient Therapy Plan of Care This is a Multidisciplinary Plan of Care that may contain components documented by all disciplines (PT, OT, and ST.) PT Problem 1 PT Problem #1 Knowledge Deficit PT Goal 1 Goal / Goal Update [place] with HEP Target Visit 4 Progress Met PT Problem 2 PT Problem #2 Impaired Range of Motion PT Goal 1 Goal / Goal Update Patient will achieve terminal R knee extension for improved gait cycle and stride -Improved but still lacking Target Visit 16 Progress Met PT Problem 3 PT Problem #3 Impaired Strength PT Goal 1 Goal / Goal Update Improve R hamstring strength to 5/5 to force couple with ACL for knee stability Target Visit 16 Progress Met PT Goal 2 Goal / Goal Update Improve tiffanie hip abduction strength to 4+/5 to improve lateral stability of pelvis and hip during ADL performance Target Visit 16 Progress Met PT Goal 1 Goal / Goal Update Patient will demonstrate ability to perform squat lift of 25# with proper form and no knee pain Target Visit 16 Progress Met PT Goal 2 Goal / Goal Update Demonstrate ability to maintain dynamic single leg stance with no pain for 30 seconds Target Visit 16 Progress Met
--- NOTE | 2024-03-17 09:28 | PTOPDC ---
Assessment and note entered by Jeremi Healy, PT Evaluation Information Assessment Status Discharge Diagnosis Strain of Right ACL ICD-10 Condition Codes (PT) Pain in right knee M25.561 Onset 12/22/23 Subjective Information Reports that at this point pain does not seem limiting. She has been able to do majority of a daily activity without her knee at the center of her mind. Feels comfortable to return in an initial low level to recreational activity. Reported Pain Level Pain Score 0: Self Report Assessment PT Clinical Summary Patient met all goals for therapy and is suitable for discharge to [facility] at this time. She has excellent understanding of exercises and warm ups for nursing home re-injury prevention. Plan of Care PT Services Indicated Yes
== END 2024-03-17 10:33 | disposition home or self-care (01) ==
LOC: ANHGOSHPT 08:30
PROVIDERS: PCP Orthopaedic Surgery; Visit Provider Student in an Organized Health Care Education/Training Program
DX: M17.11 Unilateral primary osteoarthritis, right knee (principal); S83.511A Sprain of anterior cruciate ligament of right knee, initial encounter
CPT/HCPCS: 97016; 97110; 97140; 97161; 97530

== ENCOUNTER 2024-12-11 08:59 | Outpatient (CLI) | payer MEDICARE, SELFPAY ==
--- NOTE | ~2024-12-11 | MM_ITS ---
EXAMINATION: MM screening tangela BI w herminia HISTORY: Screening TECHNIQUE: Craniocaudal and mediolateral oblique 3-D tomosynthesis images were obtained and synthetic 2-D images were generated. CAD analysis was submitted and interpreted. COMPARISON: Comparison to multiple prior studies sequentially, with oldest reviewed study dated Comparison to multiple prior studies sequentially, with oldest reviewed study dated 08/11/2018. . BREAST PARENCHYMAL COMPOSITION: Not dense: There are scattered areas of fibroglandular density. FINDINGS: There is no evidence of suspicious mass, calcification, or architectural distortion to suggest malignancy in either breast. There has been no suspicious interval change. IMPRESSION: 1. No mammographic evidence of malignancy. 2. Recommend routine screening mammography in one year. BI-RADS Category 1: Negative Reviewed, dictated and finalized at location B.
--- OUTSIDE RECORDS SUMMARY | 2024-12-11 09:23 | XMS_ITS | Encounter Summary ---
Author Organization [facility] Address [address] [place] [address] Care Team Providers Care Journalism Teacher Name Role Phone Unavailable Primary Care Provider Unavailabl e Encounter Details Date Type Department Care Team (Late st Contact Info) Description 09/08/2023 Lab Requisition [facility] - DermPath Lab [address] [facility] [place] [phone] Shaniqua Spangler MD [address] [facility] [address] [place] [address] Social History Tobacco Use Types Packs/Day Years Used Date Smoking Tobacco: Never Assessed Comments Unknown Sex and Gender Information Value Date Recorded Sex Assigned at Not on file 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 Gender Identity Female 10/06/2021 12:15 PM CDT Sexual Orientation Straight 10/06/2021 12 :15 PM CDT documented as of this encounter Plan of Treatment Not on file documented as of this encounter Procedures Procedure Name Priority Date/Time Associated Diagnosis Comments DERMATOPATHOLOGY Routine 09/06/2023 12:0 0 AM CDT documented in this encounter Results * DERMATOPATHOLOGY (09/06/2023 12:00 AM CDT) Case Report Dermatopathology Report Case: [id number] Authorizing Provider: Shaniqua Spangler MD Collected: 09/06/2023 12:00 AM Ordering Location: [facility] - Received: 09/08/2023 11:06 AM DermPath Lab Pathologist: Leah Dos Santos MD Specimen: Skin, right posterior thigh 06/27/202 4 1:53 PM CDT DERMATOPATHOLOGY LABORATORY Final Diagnosis Specimen A. SKIN, right posterior thigh: SQUAMOUS CELL CARCINOMA, WELL DIFFERENTIATED (C44.722) 1:53 PM CDT DERMATOPATHOLOGY LABORATORY at 1353 CDT Clinical History R/O SCC Irritated 1:53 PM CDT DERMATOPATHOLOGY LABORATORY Gross Description Specimen A: Received is one formalin filled container labeled with the patient's name and designated right posterior thigh. The specimen consists of a shave biopsy measuring 7x6x2 mm. Jar 0. 1:53 PM CDT DERMATOPATHOLOGY LABORATORY Microscopic Description Specimen A. SKIN, right posterior thigh: Arising in the epidermis and extending into the dermis there are irregularly shaped aggregates of keratinocytes showing evidence of premature cornification. 1:53 PM CDT DERMATOPATHOLOGY LABORATORY Disclaimer An external and internal positive and negative controls are appropriate for the histochemical, immunohistochemical and immunofluorescence stain(s) in this case (if any), except where stated explicitly. The performance characteristics of the stain(s) cited in this report were developed and its performance characteristic determined by the Dermatopathology Laboratory at [facility], directed by Dr. Rene Meneses. These tests need not be, and therefore are not, approved by the [place] Food and Drug Administration. The tests are used for clinical purposes. Billing Codes Specimen Charges Stain Charges 96408 1 1:53 PM CDT DERMATOPATHOLOGY LABORATORY Embedded Images 1:53 PM CDT DERMATOPATHOLOGY LABORATORY Pathology/Cytolog y TISSUE SPECIMEN FROM SKIN / Unknown 09/06/2023 09/08/2023 11:06 AM CDT Shaniqua Spangler MD LAB - PATHOLOGY/CYTOLOGY OR DERABLES Final Result DERMATOPATHOLOGY LABORATORY [facility] - Department of Dermatology [address], [address] [phone] documented in this encounter Visit Diagnoses Not on filedocumented in this encounter
--- OUTSIDE RECORDS SUMMARY | 2024-12-11 09:23 | XMS_ITS | Clinical Summary ---
Author Organization [facility] Address [address] [place] [id number] Care Team Providers Care Timber Watchman Name Role Phone Cheri Hercules MD Primary Care Provider + Allergies Active Allergy Reactions Criticality Noted Date Comments Meloxicam Hives Medium 08/25/2018 Medications magnesium citrate solution Take 296 mL by mouth once Active omega 6-xwt-wqz-fish oil 300-1,000 mg capsule Active testosterone, bulk, powder 1 4 Active ergocalciferol (DRISDOL) 8,000 unit/mL drops Take by mouth Ac tive NON FORMULARY, FOR INPATIENT USE, Estradiol 4mg/g with Testosterone 2mg/g apply 0.5g daily Active calcium carbonate-vitam in D3 (CALTRATE 600 + D) 1500 mg (600 mg elemental) -400 units per tablet Active cholecalciferol (VITAMIN D-3) 5,000 unit capsule daily 3 Active Active Problems Problem Noted Date Diagnosed Date History of colonic polyps 11/29/2024 Hammer toes of both feet 11/29/2024 Fibrocystic breast 11/29/2024 Dupuytren's contracture of left hand 11/29/2024 Arthrosis of right acromioclavicular joint 11/29 Arthritis of right hip 11/29/2024 Incisional hernia without obstruction or gangren e 11/29/2024 Upper respiratory infection 11/29/2024 Sensorineural hearing loss, bilateral 11/29/2024 Right shoulder pain 11/29/2024 Mixed hyperlipidemia 11/29/2024 Leukopenia 11/29/2024 Knee pain 02/10/2016 Encounters Date Type Department Care Team Description 11/30/2024 7:29 AM CDT - 11/30/2024 11:59 PM CDT Hospital Encounter [facility] Imaging and Radiology [address] [place] [address] Primary osteoarthritis of left hip Discharge Disposition: Discharge to home or self care 11/29/2024 11:00 AM CDT Office Visit [facility] Orthopaedic Surgery [address] [facility] [address] [place] [address] Amanuel Vicente MD Primary osteoarthritis of left hip (Primary Dx); Hip pain, unspecified laterality 11/29/2024 10:30 AM CDT - 11/29/2024 11:59 PM CDT Hospital Encounter [id number] Rad[facility] [address] [place] [phone] Hip pain, unspecified laterality Discharge Disposition: Discharge to home or self care 11/29/2024 Orders Only [facility] Orthopaedic Surgery [address] [facility] [place] [address] Amanuel Vicente MD Primary osteoarthritis of left hip (Primary Dx) from Last 3 Months Medical History Medical History Date Comments 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 Gender Identity Female 12/23/2023 11:27 AM CDT Sexual Orientation Not on file Obstetrics History Last Filed Vital Signs Vital Sign Reading Time Taken Comments Blood Pressure - - Pulse - - Temperature - - Respiratory Rate - - Oxygen Saturation - - Inhaled Oxygen Concentration - - Weight 56.2 kg (124 lb) 11/29/2024 11:52 AM CDT Height 160 cm (5' 3) 11/29/2024 11:52 AM CDT Body Mass Index 21.97 11/29/2024 11:52 AM CDT Plan of Treatment Health Maintenance Due Date Last Done Comments Breast Cancer Screening-Mammogram 1950 Colon Cancer Screening-Colonoscopy 1950 Depression Screening 1951 Fall Risk Assessment 1950 Hepatitis C Screening 1950 Osteoporosis Screening-Bone Density Scan 1951 Hepatitis B Screening 1969 Well Visit 65+ 2016 DTaP/Tdap/Td Vaccine (2 - Td or Tdap) 05/03/2023 05/03/2013 Covid-19 Vaccine (4 - 2024-2 6 season) 2024 12/20/2020, 03/24/2020, 03/03/2020 Influenza Vaccine (#1) 2024 , 11/24/2019, 12/13/2012, Additional history exists Pneumococcal vaccine 65+ Completed 07/13/2017, 05/14 Zoster Vaccine Completed 09/26/2018, 05/2018, 06/13/2018 Procedures Procedure Name Priority Date/Time Associated Diagnosis Comments MRI HIP LEFT WO CONTRAST Schedule Routine, Read Routine (OP Routine) 11/30/2024 7:56 AM CDT Primary osteoarthritis of left hip XR PELVIS 1 OR 2 VIEWS Schedule Routine, Read Routine (OP Routine) 11/29/2024 11:41 AM CDT Hip pain, unspecified laterality from Last 3 Months Results * MRI Hip Left WO Contrast (11/30/2024 7:56 AM CDT) Anatomical Region Laterality Modality Lower Extremities Left Magnetic Reson ance 11/30/2024 11:0 7 AM CDT Impressions 11/30/2024 5:29 PM CDT 1. Full-thickness tear of the left gluteus minimus tendon, with asymmetric left gluteus medius musculature atrophy. High-grade partial-thickness tears of the left gluteus minimus, and right gluteus medius and minimus tendons. 2. Moderate bilateral hip chondrosis with bilateral superior acetabular geodes. 3. Complex degenerative tear of the left anterior superior and posterior labrum. 4. Left greater trochanteric bursitis. Dictated by: Kelsie Spangler MD The radiology attending physician has personally reviewed this study, and had reviewed and/or edited this written report and agrees with it. Electronically signed by: Rene Lucio MD Narrative 11/30/2024 5:29 PM CDT EXAMINATION: 1. MRI left hip without contrast HISTORY: 74-year-old female with chronic left hip pain TECHNIQUE: MR examination of the pelvis and left hip was performed with a multi-coil ray. No intravenous or intra-articular contrast was administered for this examination. Coronal short TR/TE and STIR images and transverse short TR/TE and fast spin echo images of the pelvis were obtained without contrast. FINDINGS: Comparison radiograph dated 11/29/2024. Moderate bilateral hip chondrosis with geodes in the bilateral superior acetabula. Trace bilateral hip effusion. Left greater trochanteric bursitis. Degenerative tear of the left anterosuperior and posterior labrum. Right paralabral cyst. Multilevel degenerative disc disease lower lumbar spine with inferior endplate sclerosis and Schmorl's node L3-L4. The sacroiliac joints and pubic symphysis are normal. Full-thickness tear of the left gluteus minimus, and high-grade partial-thickness tear of the left gluteus minimus. Asymmetric muscular atrophy of the left gluteus medius. High-grade partial-thickness tears of the right gluteus medius and gluteus minimus tendons. The hamstring and iliopsoas tendons are normal bilaterally. No pelvic free fluid or pelvic/inguinal lymphadenopathy. Procedure Note Ivelisse Lucio MD - 11/30/2024 EXAMINATION: 1. MRI left hip without contrast HISTORY: 74-year-old female with chronic left hip pain TECHNIQUE: MR examination of the pelvis and left hip was performed with a multi-coil ray. No intravenous or intra-articular contrast was administered for this examination. Coronal short TR/TE and STIR images and transverse short TR/TE and fast spin echo images of the pelvis were obtained without contrast. FINDINGS: Comparison radiograph dated 11/29/2024. Moderate bilateral hip chondrosis with geodes in the bilateral superior acetabula. Trace bilateral hip effusion. Left greater trochanteric bursitis. Degenerative tear of the left anterosuperior and posterior labrum. Right paralabral cyst. Multilevel degenerative disc disease lower lumbar spine with inferior endplate sclerosis and Schmorl's node L3-L4. The sacroiliac joints and pubic symphysis are normal. Full-thickness tear of the left gluteus minimus, and high-grade partial-thickness tear of the left gluteus minimus. Asymmetric muscular atrophy of the left gluteus medius. High-grade partial-thickness tears of the right gluteus medius and gluteus minimus tendons. The hamstring and iliopsoas tendons are normal bilaterally. No pelvic free fluid or pelvic/inguinal lymphadenopathy. IMPRESSION: 1. Full-thickness tear of the left gluteus minimus tendon, with asymmetric left gluteus medius musculature atrophy. High-grade partial-thickness tears of the left gluteus minimus, and right gluteus medius and minimus tendons. 2. Moderate bilateral hip chondrosis with bilateral superior acetabular geodes. 3. Complex degenerative tear of the left anterior superior and posterior labrum. 4. Left greater trochanteric bursitis. Dictated by: Kelsie Spangler MD The radiology attending physician has personally reviewed this study, and had reviewed and/or edited this written report and agrees with it. Electronically signed by: Rene Lucio MD Amanuel Vicente MD [facility] MRI PROCEDURES Final Result * XR Pelvis 1 or 2 Views (11/29/2024 11:41 AM CDT) Anatomical Region Laterality Modality Body, Pelvis N/A Computed Radiogr aphy 11/29/2024 11:5 5 AM CDT Impressions 11/29/2024 11:55 AM CDT 1. Mild bilateral hip osteoarthritis. Electronically signed by: Avelino Lincoln MD Narrative 11/29/2024 11:55 AM CDT EXAMINATION: XR PELVIS 1 OR 2 VIEWS HISTORY: Hip pain. FINDINGS: No comparison. Mild bilateral hip osteophyte arthritis. No acute fracture. No dislocation on this single view. Procedure Note Avelino Lincoln MD - 11/29/2024 EXAMINATION: XR PELVIS 1 OR 2 VIEWS HISTORY: Hip pain. FINDINGS: No comparison. Mild bilateral hip osteophyte arthritis. No acute fracture. No dislocation on this single view. IMPRESSION: 1. Mild bilateral hip osteoarthritis. Electronically signed by: Avelino Lincoln MD Amanuel Vicente MD IMG XR PROCEDURES Final Result from Last [address] [facility]ARE [facility] Care Teams Timber Watchman Relationship Specialty Start Date End Date Cheri Hercules MD [facility] [facility] [address] [place] [address] PCP - General 11/30/24
--- OUTSIDE RECORDS SUMMARY | 2024-12-11 09:23 | XMS_ITS | Encounter Summary ---
Author Organization [facility] Address [address] [place] [address] Care Team Providers Care Event Decorator And Designer Name Role Phone Unavailable Primary Care Provider Unavailabl e Encounter Details Date Type Department Care Team (Late st Contact Info) Description 09/27/2023 Lab Requisition [facility] - DermPath Lab [address] [place] [phone] Shaniqua Spangler MD [address] [facility] [address] [place] [address] Social History Tobacco Use Types Packs/Day Years Used Date Smoking Tobacco: Never Assessed Comments Unknown Sex and Gender Information Value Date Recorded Sex Assigned at Not on file 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 Gender Identity Female 10/06/2021 12:15 PM CDT Sexual Orientation Straight 10/06/2021 12 :15 PM CDT documented as of this encounter Plan of Treatment Not on file documented as of this encounter Procedures Procedure Name Priority Date/Time Associated Diagnosis Comments DERMATOPATHOLOGY Routine 09/27/2023 11:5 8 AM CDT documented in this encounter Results * DERMATOPATHOLOGY (09/27/2023 11:58 AM CDT) Case Report Dermatopathology Report Case: [id number] Authorizing Provider: Shaniqua Spangler MD Collected: 09/27/2023 11:58 AM Ordering Location: [facility] - Received: 09/27/2023 05:01 PM DermPath Lab Pathologist: Esperanza Winn MD Specimen: Skin, right posterior thigh 12:46 PM CDT DERMATOPATHOLOGY LABORATORY Final Diagnosis Specimen A. SKIN, right posterior thigh: DERMAL SCAR WITH OVERLYING EPIDERMAL CHANGES (L90.5) RESIDUAL SQUAMOUS CELL CARCINOMA NOT IDENTIFIED (L90.5) 12:46 PM CDT DERMATOPATHOLOGY LABORATORY at 1246 CDT Clinical History R/O SCC, Biopsy proven Please check margins/prior biopsy 12:46 PM CDT DERMATOPATHOLOGY LABORATORY Gross Description Specimen A: Received is one formalin filled container labeled with the patient's name and designated right posterior thigh. The specimen consists of a non-oriented ellipse of skin measuring 73d04h4 mm. The epidermal surface is unremarkable. The margin is inked green. The 12 o'clock and 6 o'clock tips are submitted in cassette 1. The remainder of the ellipse is serially sectioned and submitted in cassette 2-3. Jar 0. 12:46 PM CDT DERMATOPATHOLOGY LABORATORY Microscopic Description Specimen A. SKIN, right posterior thigh: Sections show focally laminated fibroplasia and prominent blood vessels. There are plump fibrocytes and inflammation. Reactive epidermal changes are also identified consistent with a prior biopsy site. . No residual squamous cell carcinoma is identified. 12:46 PM CDT DERMATOPATHOLOGY LABORATORY Disclaimer An external and internal positive and negative controls are appropriate for the histochemical, immunohistochemical and immunofluorescence stain(s) in this case (if any), except where stated explicitly. The performance characteristics of the stain(s) cited in this report were developed and its performance characteristic determined by the Dermatopathology Laboratory at [facility], directed by Dr. Rene Meneses. These tests need not be, and therefore are not, approved by the [place] Food and Drug Administration. The tests are used for clinical purposes. Billing Codes Specimen Charges Stain Charges 65751 1 12:46 PM CDT DERMATOPATHOLOGY LABORATORY Embedded Images 12:46 PM CDT DERMATOPATHOLOGY LABORATORY Pathology/Cytolo gy TISSUE SPECIMEN FROM SKIN / Unknown 09/27/2023 11:58 AM CDT 09/27/2023 5:01 PM CDT us Shaniqua Spangler MD LAB - PATHOLOGY/CYTOLOGY OR DERABLES Final Result DERMATOPATHOLOGY LABORATORY [facility] - Department of Dermatology [facility] [address] [place] [address], [address] [place] [address], [facility] [phone] documented in this encounter Visit Diagnoses Not on filedocumented in this encounter
--- OUTSIDE RECORDS SUMMARY | 2024-12-11 09:23 | XMS_ITS | Clinical Summary ---
Author Organization [facility] Address [address] [place] [address] Care Team Providers Care Civil Division Deputy Sheriff Name Role Phone Unavailable Primary Care Provider Unavailabl e Source Comments [facility],non-owned Affiliates and Associated Physician Practices is amultiple site organization consisting of ambulatory clinics and hospital sitesin [place], [place], [place] and [place]. This disclosure is being madepursuant to the Care Everywhere program and may not contain all information available regarding this patient. 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 Gender Identity Female 10/06/2021 12:15 PM CDT Sexual Orientation Straight 10/06/2021 12 :15 PM CDT Plan of Treatment Health Maintenance Due Date Last Done Comments BONE DENSITY TESTING 1950 COLOGUARD (AGES 45-75) - COL ON CA SCREENING 1950 COLON MONITORING 1951 COLONOSCOPY - COLON CA SCREENING 1951 CT COLONOGRAPHY - COLON CA SCREENING 1950 Colorectal Cancer Screening 1950 FIT - COLON CA SCREENING 1951 FLEX SIG - COLON CA SCREENING 1950 LIPID TESTING 1950 MAMMOGRAM 1950 MEDICARE AWV 12 MONTHS 1951 HEPATITIS C SCREENING 04/26/1969 DTAP/TDAP/TD VACCINES (1 - Tdap) 1970 PNEUMOCOCCAL VACCINE 50+ (1 of 1 - PCV) 2001 ZOSTER VACCINE (1 of 2) 2001 DEPRESSION SCREENING 03/15/2024 COVID-19 VACCINE (1 - 2023-2 5 season) 2024 INFLUENZA VACCINE (#1) 2024 Respiratory Syncytial Virus (RSV) Vaccine Pt: or over 60 yrs (1 - 1-dose 75+ series) 2026 HEPATITIS B VACCINE Aged Out No longe r eligible based on patient's age to complete this topic HIB VACCINE Aged Out No longer eligi ble based on patient's age to complete this topic HPV VACCINE Aged Out No longer eligi ble based on patient's age to complete this topic MENINGOCOCCAL (Group B) VACC INE SHARED DECISION-MAKING Aged Out No longer eligibl e based on patient's age to complete this topic MENINGOCOCCAL GROUPS A/C/Y/W VACCINE Aged Out No longer eligible b ased on patient's age to complete this topic Insurance MEDICARE [facility]
--- OUTSIDE RECORDS SUMMARY | 2024-12-11 09:24 | XMS_ITS | Clinical Summary ---
Author Organization [facility] Address [address] [place] [address] Phone Care Team Providers Care Finish Rolls Operator Name Role Phone Scott Hercules MD Primary Care Provider [phone] Allergies Active Allergy Reactions Criticality Noted Date Comments Meloxicam Hives 08/25/2018 Medications glucosamine-cho ndroitin (ARTHX DS) 500-400 mg Capsule Take 1 Capsule by mouth. Active omega-3 fatty acids (FISH OIL ORAL) Take by mouth. Activ e magnesium citrate solution Take 296 mL by mouth one time only. Active ergocalciferol, vitamin D2, (VITAMIN D ORAL) Take by mouth. Activ e OTHER Estradiol 4mg/g with Testosterone 2mg/g apply 0.5g daily Active Active Problems No known active problems Social History Tobacco Use Types Packs/Day Years Used Date Smoking Tobacco: Never Smokeless Tobacco: Never Alcohol Use Standard Drinks/Week Comments Yes 0 (1 standard drink = 0.6 oz pur e alcohol) Comments No Sex and Gender Information Value Date Recorded Sex Assigned at Not on file Legal Sex Female 5:13 AM GRAPHICS EDITOR Gender Identity Not on file Sexual Orientation Not on file Last Filed Vital Signs Vital Sign Reading Time Taken Comments Blood Pressure 120/78 02/23/2019 10:25 AM GRAPHICS EDITOR Pulse - - Temperature - - Respiratory Rate - - Oxygen Saturation - - Inhaled Oxygen Concentration - - Weight 64 kg (141 lb) 02/23/2019 10:25 AM GRAPHICS EDITOR Height 162.6 cm (5' 4) 02/23/2019 10:25 AM GRAPHICS EDITOR Body Mass Index 24.2 02/23/2019 10:25 AM GRAPHICS EDITOR Plan of Treatment Health Maintenance Due Date Last Done Comments DTAP/TDAP/TD VACCINES (1 - Tdap) 1970 COLORECTAL SCREENING 1996 Colorectal Cancer Screening 1996 FIT-DNA Q 3 years 1996 FIT/FOBT Q 1 year 1996 Flex Sig/CT Colonography Q 5 years 1996 PNEUMOCOCCAL VACCINE 50+ YEA RS (1 of 1 - PCV) 2001 ZOSTER VACCINE (1 of 2) 2001 BREAST CANCER SCREENING 08/14/2020 08/15/19 20, 08/15/2019, 08/11/2018, Additional history exists OSTEOPOROSIS SCREENING 07/06/2021 07/06/2016 INFLUENZA VACCINE (#1) 2024 RSV VACCINE (60+ or ) (1 - 1-dose 75+ series) 2026 Procedures Procedure Name Priority Date/Time Associated Diagnosis Comments MAMMO SCREENING BILAT Routine 08/11/2018 from Last 3 Months or Most Recently Relevant to Health Maintenance Results * MAMMO SCREENING BILAT (08/11/2018) Anatomical Region Laterality Modality Breast Bilateral Mammography us Vandana Lilly DO MAMMO ORDERABLES Edite d Result - Final from Last 3 Months or Most Recently Relevant to Health Maintenance Insurance MEDICARE PART A AND B [place]ACK [place] [id number] Care Teams Finish Rolls Operator Relationship Specialty Start Date End Date Scott Hercules MD PCP - General Family Practice 08/25/18
== END 2024-12-11 09:00 | disposition home or self-care (01) ==
LOC: ANHFOHIMG 09:01
PROVIDERS: PCP Family Medicine; Visit Provider Family Medicine
DX: Z12.31 Encounter for screening mammogram for malignant neoplasm of breast (principal)
CPT/HCPCS: 77063; 77067